=== PATIENT | female | born 1965 | race Caucasian/White ===

== ENCOUNTER → 2024-03-13 09:44 | Outpatient (REF) | payer BC, OTHER, SELFPAY | LOC: RAD 09:44 | PROVIDERS: ATTENDING PHYSICIAN Nurse Practitioner | DX: E04.9 Nontoxic goiter, unspecified (principal); Z00.01 Encounter for general adult medical examination with abnormal findings; Z12.31 Encounter for screening mammogram for malignant neoplasm of breast | CPT/HCPCS: 76536 ==